=== PATIENT | male | born 1945 | race Hispanic/Latino ===

== ENCOUNTER 2016-11-01 17:30 | Emergency (ER) | payer MEDICARE, OTHER ==
[2016-11-01] MEDS ORDERED: ARTIFICIAL TEARS OPHTH OINT OU PRN (17:46)
[2016-11-01] MEDS ORDERED: VASELINE LIP THERAPY TP PRN (17:46)
--- NOTE | 2016-11-01 17:51 | Emergency Department Report ---
HPI - HPI HPI: This is a 71-year-old male who presents to the emergency department via EMS from home with altered mental status and being nonresponsive. About 40 minutes prior to presentation the patient was stung by one of her multiple bees. The family then hosed him down with cold water in order to try and get the bees away from him. About 15 or 20 minutes after this the patient suddenly went nonresponsive, nonverbal. He is therefore a poor historian. There is no known past medical history. <NATE HOPE Danny - Last Filed: 11/03/16 06:07> <CHELASUKHDEV - Last Filed: 11/07/16 04:56> - General Time Seen by Provider: 11/01/16 17:45 ED Past Medical Hx - Past Medical History Previous Medical History?: No - Surgical History Past Surgical History?: No <NATE HOPE Danny - Last Filed: 11/03/16 06:07> <KULDEEPELIZABETHSUKHDEV - Last Filed: 11/07/16 04:56> - Medications Home Medications: Home Medications Medication Instructions Recorded Confirmed Last Taken Type Acetaminophen [Tylenol] 325 mg PO Q6HR PRN 11/01/16 11/01/16 10/31/16 History ED Review of Systems ROS: Stated complaint: POSS STROKE Other details as noted in HPI Comment: Unobtainable due to pts medical conditions <HERMINIANATE Danny - Last Filed: 11/03/16 06:07> ROS: Stated complaint: POSS STROKE Other details as noted in HPI <SUKHDEV YORK - Last Filed: 11/07/16 04:56> Physical Exam - Physical Exam Physical Exam: GENERAL: The patient is ill-appearing and unresponsive. HENT: Normocephalic. Atraumatic. Patient has moist mucous membranes. EYES: Patient appears to move his eyes slightly but does not appear to be tracking. Pupils equal reactive to light bilaterally. NECK: Supple. Trachea is midline. CHEST/LUNGS: There are shallow snoring respirations. HEART/CARDIOVASCULAR: Regular. There is no tachycardia. There is no gallop rub or murmur. ABDOMEN: Abdomen is soft, nontender. Patient has normal bowel sounds. There is no abdominal distention. SKIN: There is no rash. There is no edema. There is no diaphoresis. NEURO: Patient is awake with his eyes open but is otherwise unresponsive. MUSCULOSKELETAL: There is no tenderness or deformity. There is no limitation range of motion. There is no evidence of acute injury. <NATE HOPE - Last Filed: 11/03/16 06:07> - Physical Exam Vital Signs: Vital Signs 11/01/16 11/01/16 11/01/16 17:30 17:56 18:00 Temperature Pulse Rate 97 H 72 80 Respiratory 12 11 L 9 L Rate Blood Pressure 145/107 123/80 157/96 Blood Pressure [Left] O2 Sat by Pulse 100 96 Oximetry 11/01/16 11/01/16 11/01/16 18:15 18:22 18:26 Temperature 98.0 F Pulse Rate 65 78 Respiratory 18 Rate Blood Pressure 138/77 157/96 Blood Pressure [Left] O2 Sat by Pulse 100 100 Oximetry 11/01/16 11/01/16 11/01/16 18:30 18:43 18:45 Temperature Pulse Rate 73 61 62 Respiratory 12 18 Rate Blood Pressure 146/81 146/81 133/72 Blood Pressure [Left] O2 Sat by Pulse 99 100 99 Oximetry 11/01/16 11/01/16 11/01/16 19:22 19:30 19:45 Temperature 96.8 F L Pulse Rate 64 61 64 Respiratory 20 17 22 Rate Blood Pressure 133/72 156/48 139/66 Blood Pressure 156/48 [Left] O2 Sat by Pulse 100 100 100 Oximetry 11/01/16 11/01/16 11/01/16 20:00 20:02 20:15 Temperature Pulse Rate 61 61 57 L Respiratory 20 18 Rate Blood Pressure 130/56 139/66 117/58 Blood Pressure [Left] O2 Sat by Pulse 100 100 100 Oximetry 11/01/16 11/01/16 11/01/16 20:30 20:45 21:00 Temperature Pulse Rate 56 L 59 L 57 L Respiratory 18 18 18 Rate Blood Pressure 109/58 112/62 117/59 Blood Pressure [Left] O2 Sat by Pulse 100 100 100 Oximetry 11/01/16 21:15 Temperature Pulse Rate 58 L Respiratory 18 Rate Blood Pressure 125/62 Blood Pressure [Left] O2 Sat by Pulse 100 Oximetry <SUKHDEV YORK - Last Filed: 11/07/16 04:56> ED Course - Consultations Consultation #1: Just after the CT of the head without contrast resulted as negative, I spoke with the telemedicine neurologist Dr. Sheth who recommended a CT angiography of the head and neck to further rule out a thrombus as the source of the patient 's altered mental status. The patient's labs show renal insufficiency with a creatinine of 1.8 and a GFR 37. I spoke with Dr. Sheth yet again and he still recommends despite this renal insufficiency to have a CT angiography. It should also be noted that it is after hours for the MRI machine at this facility and attempting to get an MRI or MRA would not be expedient and therefore CT angiography is still the more prudent and efficient imaging test 11/01/16 18:59 <NATE HOPE S - Last Filed: 11/03/16 06:07> Vital Signs 11/01/16 11/01/16 11/01/16 17:30 17:56 18:00 Temperature Pulse Rate 97 H 72 80 Respiratory 12 11 L 9 L Rate Blood Pressure 145/107 123/80 157/96 Blood Pressure [Left] O2 Sat by Pulse 100 96 Oximetry 11/01/16 11/01/16 11/01/16 18:15 18:22 18:26 Temperature 98.0 F Pulse Rate 65 78 Respiratory 18 Rate Blood Pressure 138/77 157/96 Blood Pressure [Left] O2 Sat by Pulse 100 100 Oximetry 11/01/16 11/01/16 11/01/16 18:30 18:43 18:45 Temperature Pulse Rate 73 61 62 Respiratory 12 18 Rate Blood Pressure 146/81 146/81 133/72 Blood Pressure [Left] O2 Sat by Pulse 99 100 99 Oximetry 11/01/16 11/01/16 11/01/16 19:22 19:30 19:45 Temperature 96.8 F L Pulse Rate 64 61 64 Respiratory 20 17 22 Rate Blood Pressure 133/72 156/48 139/66 Blood Pressure 156/48 [Left] O2 Sat by Pulse 100 100 100 Oximetry 11/01/16 11/01/16 11/01/16 20:00 20:02 20:15 Temperature Pulse Rate 61 61 57 L Respiratory 20 18 Rate Blood Pressure 130/56 139/66 117/58 Blood Pressure [Left] O2 Sat by Pulse 100 100 100 Oximetry 11/01/16 11/01/16 11/01/16 20:30 20:45 21:00 Temperature Pulse Rate 56 L 59 L 57 L Respiratory 18 18 18 Rate Blood Pressure 109/58 112/62 117/59 Blood Pressure [Left] O2 Sat by Pulse 100 100 100 Oximetry 11/01/16 21:15 Temperature Pulse Rate 58 L Respiratory 18 Rate Blood Pressure 125/62 Blood Pressure [Left] O2 Sat by Pulse 100 Oximetry <CHELASUKHDEV - Last Filed: 11/07/16 04:56> - Intubation Time Out Performed: Yes Sedative: Etomidate Mg Given: 20 Paralytic: Rocuronium Mg Given: 100 Laryngoscope: fiberoptic video scope Size: 4 ET Tube Size: 7.5 Tube Secured Depth (cm): 25 Tube Secured Location: lips Tube Placement Confirmation: visualized tube passing t, equal breath sounds bilat, confirmation by capnometr Patient Tolerated Procedure: well Intubation Complications: none <NATE OHPE - Last Filed: 11/03/16 06:07> ED Medical Decision Making - Lab Data Result diagrams: 11/01/16 17:50 11/01/16 17:50 - EKG Data -: EKG Interpreted by Me EKG shows normal: sinus rhythm, axis, intervals, QRS complexes, ST-T waves Rate: normal - EKG Data When compared to previous EKG there are: previous EKG unavailable Interpretation: normal EKG - Radiology Data Radiology results: report reviewed, image reviewed interpreted by me: Chest x-ray does not show any acute process. There is no obvious pneumonia, pleural effusions or pneumothorax. Endotracheal tube is in the right mainstem bronchus and needs to be pulled back about 3.[address] of the head without contrast does not show any bleed, shift, mass, ischemic changes or any acute intracranial process. PROCEDURE: CT ANGIO NECK TECHNIQUE: Computerized tomographic angiography of the neck was performed after the IV injection of iodinated nonionic contrast including image processing. The image data was postprocessed using 2-dimensional multiplanar reformatted (MPR) and 3-dimensional (MIP and/or volume rendered) techniques. HISTORY: CVA COMPARISON: No prior studies are available for comparison. Note: Assessment of carotid artery stenosis is based on measurement of the distal internal carotid artery diameter as the denominator for stenosis calculations and the [place] Symptomatic Carotid Endarterectomy Trial (NASCET) stenosis criteria . CPT 3100F FINDINGS: Endotracheal tube is low-lying terminating near the right mainstem bronchus origin. It should be withdrawn approximately 2 cm. Mild hypoventilatory changes are seen in the upper lungs. There is tortuosity of the origin of the right vertebral artery. No right vertebral artery stenosis is seen in the neck. There is absence of enhancement of the left vertebral artery, except distally which may be in a retrograde fashion. Calcified plaque is seen at the origin of the left vertebral artery. Minimal partially calcified plaque is seen in the right carotid bifurcation causing 10 percent stenosis. Similar mild plaque is seen in the left carotid bifurcation causing approximately 10 percent stenosis. 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 Only mild stenoses are seen in the carotid bifurcations. PROCEDURE: CT ANGIO HEAD TECHNIQUE: Computerized tomographic angiography of the head was performed after the IV injection of iodinated nonionic contrast including image processing. The image data was postprocessed using 2-dimensional multiplanar reformatted (MPR) and 3-dimensional (MIP and/or volume rendered) techniques. HISTORY: CVA COMPARISON: Head CT dated November 01, 2016 FINDINGS: Distal vertebral arteries appears symmetric but left vertebral artery is probably filling in a retrograde fashion given findings on CTA neck. There is probable subtotal occlusion of the distal 1.2 cm of the basilar artery. This is likely recent as there is probable hyperdense thrombus on unenhanced CT exam in this region. Both P1 segments enhance normally. Posterior communicating arteries are present. Anterior communicating artery is seen. Minimal calcified plaque in the supraclinoid portions of the distal ICAs causes less than 10 percent stenosis. There is normal enhancement of the dural venous sinuses. No definite parenchymal changes of CVA are seen but correlation with MRI may be useful. IMPRESSION: There is subtotal occlusion of the basilar tip, likely from recent thrombosis. Left vertebral artery is occluded in the neck and could be a source for embolus. - Medical Decision Making 71-year-old male presents to the emergency department unresponsive after allegedly being stung by yellow jackets and then hosed down by [place]. The patient was awake with his eyes open but otherwise was not responsive and had some type of shallow snoring respirations. There was concern for airway compromise patient was intubated. Stroke scale is difficult to assess secondary to the level of unresponsiveness. A code stroke was called and CT of the head without contrast did not show any infarct or bleed. Labs are mostly unremarkable other than lactic acidosis and did not showing any etiology of the symptoms. I spoken to telemedicine neurology who did not recommend TPA administration immediately but did recommend CT angiography of the head and neck. The results were not yet back on the CT angiography but when I left the hospital the plan was for the patient to be admitted to [facility] unless there was some type of thrombus seen, in which case the patient would be transferred to a higher institution with neurosurgery. CT angiography essentially showed a basilar and left vertebral artery occlusion and my colleague help facilitate transfer. - Differential Diagnosis CVA, TIA, anaphylaxis <NATE HOPE - Last Filed: 11/03/16 06:07> - Lab Data Result diagrams: 11/01/16 17:50 11/01/16 17:50 <CHELASUKHDEV - Last Filed: 11/07/16 04:56> Critical Care Time: Yes Critical care time in (mins) excluding proc time.: 45 Critical care attestation.: If time is entered above; I have spent that time in minutes in the direct care of this critically ill patient, excluding procedure time. Critical care time spent on this patient and doing his initial evaluation, multiple re-evaluations, multiple discussions with the patient's daughter and , ordering and interpretation of labs, ordering and interpretation of imaging and disposition planning. <NATE HOPE S - Last Filed: 11/03/16 06:07> Critical care attestation.: If time is entered above; I have spent that time in minutes in the direct care of this critically ill patient, excluding procedure time. <CHELASUKHDEV - Last Filed: 11/07/16 04:56> ED Disposition Is pt being admited?: No <NATE HOPE - Last Filed: 11/03/16 06:07> Is pt being admited?: No <CHELASUKHDEV - Last Filed: 11/07/16 04:56> Clinical Impression: CVA (cerebral vascular accident) Qualifiers: CVA mechanism: occlusion Precerebral and cerebral artery: vertebral artery Laterality of affected vessel: unspecified Qualified Code(s): I63.219 - Cerebral infarction due to unspecified occlusion or stenosis of unspecified vertebral arteries Dis[facility]: DC[facility] IP Condition: Critical Referrals: PRIMARY CARE,MD [Primary Care Provider] - 3-5 Days
[2016-11-01] MEDS ORDERED: fentaNYL DRIP Premix 2,000 MCG/100 ML BAG IV SCH (18:00)
[2016-11-01] MEDS ORDERED: MIDAZOLAM 100 MG in NACL 0.9% 80 ML IV SCH (18:00)
[2016-11-01 18:03] LABS: Hematocrit 44.2 % (35.5-45.6); Hemoglobin 14.6 gm/dl (11.8-15.2); Mean Corpuscular HGB Conc 33 % (32-34); Mean Corpuscular Hemoglobin 31 pg (28-32); Mean Corpuscular Volume 94 fl (84-94); Platelet Count 301 K/mm3 (140-440); Red Blood Count 4.69 M/mm3 (3.65-5.03); Red Cell Distribution Width 13.3 % (13.2-15.2); White Blood Count 12.4 K/mm3 (4.5-11.0)
--- NOTE | 2016-11-01 18:06 | Cat Scan Report ---
FINAL REPORT PROCEDURE: CT HEAD/BRAIN WO CON TECHNIQUE: Computerized tomography of the head was performed without contrast material. HISTORY: suspected stroke COMPARISON: No prior studies are available for comparison. FINDINGS: Visualized portions of the paranasal sinuses and mastoid air cells are clear. No calvarial fracture is seen. Cerebral ventricles are normal in size. There may be minimal chronic small vessel ischemic changes but no evidence of an acute CVA is seen. No acute intracranial hemorrhage or mass effect is seen. IMPRESSION: Possible mild chronic small vessel ischemic changes are seen without evidence of acute abnormality.
[2016-11-01 18:12] LABS: INR 1.03 (0.87-1.13); Partial Thromboplastin Time 24.1 Sec. (24.2-36.6)
[2016-11-01 18:28] LABS: Creatine Kinase MB 5.2 ng/mL (0.0-4.0)
[2016-11-01 18:29] LABS: Alanine Aminotransferase 16 units/L (7-56); Albumin/Globulin Ratio 1.2 %; Alkaline Phosphatase 59 units/L (35-129); Anion Gap 24 mmol/L; BUN/Creatinine Ratio 17.22; Blood Urea Nitrogen 31 mg/dL (9-20); Calcium 8.6 mg/dL (8.4-10.2); Carbon Dioxide 17 mmol/L (22-30); Chloride 102.6 mmol/L (98-107); Creatine Kinase 215 units/L (55-170); Glucose 136 mg/dL (75-100); Potassium 3.9 mmol/L (3.6-5.0); Sodium 140 mmol/L (137-145); Total Protein 7.4 g/dL (6.3-8.2)
[2016-11-01 18:32] LABS: Urine Drugs of Abuse Note Disclamer
--- NOTE | 2016-11-01 18:37 | History and Physical Report ---
History of Present Illness Chief complaint: Unresponsive History of present illness: 71 YO Male with NO PMH presents to ED for evaluation. Pt was in his usual state of health and was stung by multiple bees. Pt was hosed down with cold water by family members and thereafter became unresponsive. EMS notified, and upon arrival the patient was found is respiratory distress and transported to [facility]. Pt seen and evaluated in ED and found to be in severe distress, and was intubated and placed on vent support. Pt unable to provide history. Pt family at bedside and provides history. Past History Past Medical History: No medical history, other (reviewed) Past Surgical History: No surgical history, Other (reviewed) Social history: , lives with family. denies: smoking, prescription drug abuse, IV drug use Family history: hypertension Medications and Allergies Allergies Allergy/AdvReac Type Severity Reaction Status Date / Time No Known Allergies Allergy Unverified 11/01/16 17:48 Home Medications Medication Instructions Recorded Confirmed Last Taken Type Acetaminophen [Tylenol] 325 mg PO Q6HR PRN 11/01/16 11/01/16 10/31/16 History Active Meds: Active Medications Hydrophilic Ointment (Vaseline Lip Therapy) 1 applic TP Q2HR PRN PRN Reason: Dry Lips Fentanyl Citrate (Fentanyl Drip Premix) 2,000 mcg in 100 mls @ 4.536 mls/hr IV TITR DIANA; 1 MCG/KG/HR PRN Reason: Protocol Midazolam HCl 100 mg/ Sodium (Chloride) 100 mls @ 2 mls/hr IV TITR DIANA; 2 MG/HR PRN Reason: Protocol Multi-Ingred Cream/Lotion/Oil/Oint (Artificial Tears Ophth Oint) 1 applic OU Q4HR PRN PRN Reason: Dry Eye(s) Review of Systems ROS unobtainable: due to mental status Exam - Constitutional Vitals: Temp Pulse Resp BP Pulse Ox 98.0 F 78 9 L 157/96 100 11/01/16 18:22 11/01/16 18:26 11/01/16 18:00 11/01/16 18:26 11/01/16 18:26 General appearance: Present: severe distress - EENT ENT: poor dentition - Neck Neck: Present: supple, normal ROM - Respiratory Respiratory effort: labored, accessory muscle use Respiratory: bilateral: diminished - Cardiovascular Heart Sounds: Present: S1 & S2. Absent: rub, click - Extremities Extremities: pulses symmetrical, No edema Extremity abnormal: edema Peripheral Pulses: within normal limits - Abdominal General gastrointestinal: Present: soft, non-tender, non-distended, normal bowel sounds Male genitourinary: Present: normal - Integumentary Integumentary: Present: clear, dry, decreased turgor - Musculoskeletal Musculoskeletal: generalized weakness - Psychiatric Psychiatric: no intact judgment & insight, no memory intact - Neurologic Neurologic: no gait normal Results - Labs CBC & Chem 7: 11/01/16 17:50 11/01/16 17:50 Labs: Abnormal lab results 11/01/16 11/01/16 11/01/16 Range/Units 17:50 17:50 17:50 WBC 12.4 H (4.5-11.0) K/mm3 APTT 24.1 L (24.2-36.6) Sec. Carbon Dioxide 17 L (22-30) mmol/L BUN 31 H (9-20) mg/dL Creatinine 1.8 H (0.8-1.5) mg/dL Glucose 136 H (75-100) mg/dL Total Creatine Kinase 215 H (55-170) units/L CK-MB (CK-2) 5.2 H (0.0-4.0) ng/mL Assessment and Plan - Patient Problems (1) Acute respiratory failure Status: Acute Qualifiers: Respiratory failure complication: hypoxia Qualified Code(s): J96.01 - Acute respiratory failure with hypoxia Plan to address problem: Pulmonary consulted, wean vent as tolerated, sbt in am, supportive card The high probability of a clinically significant, sudden or life threatening deterioration of the [pulmonary, cardiac, renal] system(s) required my full and direct attention, intervention and personal management. The aggregate critical care time was [65] minutes. This time is in addition to time spent performing reported procedures but includes the following: [x] Data Review and interpretation [x] Patient assessment and monitoring of vital signs [x] Documentation [x] Medication orders and management (2) Metabolic acidosis Status: Acute Plan to address problem: supportive care, IVF resuscitation, repeaat bmp (3) ARF (acute renal failure) Status: Acute Qualifiers: Acute renal failure type: A Plan to address problem: IVF, supportive care, monitor uop q shift, (4) Anaphylactic reaction Status: Acute Qualifiers: Encounter type: E Plan to address problem: trial steroid therapy, supportive care. monitor bp, (5) DVT prophylaxis Status: Acute
[2016-11-01 18:52] LABS: Bilirubin,Urine NEG (Negative); Blood,Urine NEG (Negative); Ketones,Urine NEG (Negative); Leukocyte Esterase,Urine NEG (Negative); Mucus,Urine FEW /HPF; Nitrite,Urine NEG (Negative); Protein,Urine <15 mg/dL mg/dL (Negative); Urobilinogen,Urine < 2.0 mg/dL (<2.0); WBC,Urine < 1.0 /HPF (0.0-6.0)
[2016-11-01] MEDS ORDERED: NACL 0.45% 1,000 ML IV SCH (19:00)
[2016-11-01 19:04] LABS: ISTAT Base Excess -1; ISTAT PCO2 35.4 (35-45); ISTAT PO2 70 (80-105); ISTAT SO2 94; ISTAT TCO2 24
[2016-11-01 19:12] LABS: Basophils % (Manual) 0 % (0.0-1.8); Blastocytes % (Manual) 0 %
[2016-11-01 19:13] LABS: RBC Morphology Normal
[2016-11-01 19:14] LABS: Diff Status Complete; Large Platelets 1+; Platelet Estimate Consistent w Auto
[2016-11-01] MEDS ORDERED: fentaNYL DRIP Premix 2,000 MCG/100 ML BAG IV ONE (20:00)
[2016-11-01] MEDS ORDERED: SUBLIMAZE ONE (20:14)
--- NOTE | 2016-11-01 20:14 | Cat Scan Report ---
FINAL REPORT PROCEDURE: CT ANGIO NECK TECHNIQUE: Computerized tomographic angiography of the neck was performed after the IV injection of iodinated nonionic contrast including image processing. The image data was postprocessed using 2-dimensional multiplanar reformatted (MPR) and 3-dimensional (MIP and/or volume rendered) techniques. HISTORY: CVA COMPARISON: No prior studies are available for comparison. Note: Assessment of carotid artery stenosis is based on measurement of the distal internal carotid artery diameter as the denominator for stenosis calculations and the [place] Symptomatic Carotid Endarterectomy Trial (NASCET) stenosis criteria . CPT 3100F FINDINGS: Endotracheal tube is low-lying terminating near the right mainstem bronchus origin. It should be withdrawn approximately 2 cm. Mild hypoventilatory changes are seen in the upper lungs. There is tortuosity of the origin of the right vertebral artery. No right vertebral artery stenosis is seen in the neck. There is absence of enhancement of the left vertebral artery, except distally which may be in a retrograde fashion. Calcified plaque is seen at the origin of the left vertebral artery. Minimal partially calcified plaque is seen in the right carotid bifurcation causing 10 percent stenosis. Similar mild plaque is seen in the left carotid bifurcation causing approximately 10 percent stenosis. 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 Only mild stenoses are seen in the carotid bifurcations. Endotracheal tube is low-lying terminating near the right mainstem bronchus origin. It should be withdrawn approximately 2 cm.
--- NOTE | 2016-11-01 20:39 | Cat Scan Report ---
FINAL REPORT PROCEDURE: CT ANGIO HEAD TECHNIQUE: Computerized tomographic angiography of the head was performed after the IV injection of iodinated nonionic contrast including image processing. The image data was postprocessed using 2-dimensional multiplanar reformatted (MPR) and 3-dimensional (MIP and/or volume rendered) techniques. HISTORY: CVA COMPARISON: Head CT dated November 01, 2016 FINDINGS: Distal vertebral arteries appears symmetric but left vertebral artery is probably filling in a retrograde fashion given findings on CTA neck. There is probable subtotal occlusion of the distal 1.2 cm of the basilar artery. This is likely recent as there is probable hyperdense thrombus on unenhanced CT exam in this region. Both P1 segments enhance normally. Posterior communicating arteries are present. Anterior communicating artery is seen. Minimal calcified plaque in the supraclinoid portions of the distal ICAs causes less than 10 percent stenosis. There is normal enhancement of the dural venous sinuses. No definite parenchymal changes of CVA are seen but correlation with MRI may be useful. IMPRESSION: There is subtotal occlusion of the basilar tip, likely from recent thrombosis. Left vertebral artery is occluded in the neck and could be a source for embolus. Results from this exam and CTA neck exam were discussed with Dr. Cohen at 8:32 p.m. Eastern time on November 01, 2016.
[2016-11-01] MEDS ORDERED: ACTIVASE ONE (20:46)
[2016-11-01] MEDS ORDERED: ACTIVASE IV ONE ×2 (20:48)
[2016-11-01] MEDS ORDERED: NACL 0.9% IV ONE (20:48)
[2016-11-01] MEDS ORDERED: NACL 0.9% 250ML 250 ML ONE (20:52)
--- NOTE | 2016-11-01 21:33 | Event Note ---
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 I went back to discuss these findings with the patient's family, and the consult and stroke neurologist, Dr. Leandro Sheth. TPA strongly recommended, and the risks, benefits, alternatives were discussed with family who verbalized understanding. The specific risk of , disability, intracranial hemorrhage was discussed with the patient's family, and they gave verbal consent for TPA administration. Of note, the endotracheal tube was initially noted to be in the right mainstem bronchus, respiratory therapy has retracted this. I have also discussed the case with endovascular stroke neurology at [facility], Dr. Blanton, who personally reviewed the patient's CT angiogram findings, and accepted the patient as an emergency transfer for endovascular stroke rescue. Patient's family is informed. TPA was administered within the window. Vital Signs 11/01/16 11/01/16 11/01/16 17:30 17:56 18:00 Temperature Pulse Rate 97 H 72 80 Respiratory 12 11 L 9 L Rate Blood Pressure 145/107 123/80 157/96 Blood Pressure [Left] O2 Sat by Pulse 100 96 Oximetry 11/01/16 11/01/16 11/01/16 18:15 18:22 18:26 Temperature 98.0 F Pulse Rate 65 78 Respiratory 18 Rate Blood Pressure 138/77 157/96 Blood Pressure [Left] O2 Sat by Pulse 100 100 Oximetry 11/01/16 11/01/16 11/01/16 18:30 18:43 18:45 Temperature Pulse Rate 73 61 62 Respiratory 12 18 Rate Blood Pressure 146/81 146/81 133/72 Blood Pressure [Left] O2 Sat by Pulse 99 100 99 Oximetry 11/01/16 11/01/16 11/01/16 19:22 19:30 19:45 Temperature 96.8 F L Pulse Rate 64 61 64 Respiratory 20 17 22 Rate Blood Pressure 133/72 156/48 139/66 Blood Pressure 156/48 [Left] O2 Sat by Pulse 100 100 100 Oximetry 11/01/16 11/01/16 11/01/16 20:00 20:02 20:15 Temperature Pulse Rate 61 61 57 L Respiratory 20 18 Rate Blood Pressure 130/56 139/66 117/58 Blood Pressure [Left] O2 Sat by Pulse 100 100 100 Oximetry 08/18/17 08/18/17 08/18/17 20:30 20:45 21:00 Temperature Pulse Rate 56 L 59 L 57 L Respiratory 18 18 18 Rate Blood Pressure 109/58 112/62 117/59 Blood Pressure [Left] O2 Sat by Pulse 100 100 100 Oximetry 11/01/16 21:15 Temperature Pulse Rate 58 L Respiratory 18 Rate Blood Pressure 125/62 Blood Pressure [Left] O2 Sat by Pulse 100 Oximetry Lab Results 11/01/16 11/01/16 11/01/16 Range/Units 17:46 17:50 17:50 WBC 12.4 H (4.5-11.0) K/mm3 RBC 4.69 (3.65-5.03) M/mm3 Hgb 14.6 (11.8-15.2) gm/dl Hct 44.2 (35.5-45.6) % MCV 94 (84-94) fl MCH 31 (28-32) pg MCHC 33 (32-34) % RDW 13.3 (13.2-15.2) % Plt Count 301 (140-440) K/mm3 Lymph # [place] Add Manual Diff Complete Total Counted 100 Seg Neuts % (Manual) 58.0 (40.0-70.0) % Band Neutrophils % 0 % Lymphocytes % (Manual) 31.0 (13.4-35.0) % Reactive Lymphs % (Man) 0 % Monocytes % (Manual) 10.0 H (0.0-7.3) % Eosinophils % (Manual) 1.0 (0.0-4.3) % Basophils % (Manual) 0 (0.0-1.8) % Metamyelocytes % 0 % Myelocytes % 0 % Promyelocytes % 0 % Blast Cells % 0 % Nucleated RBC % Not Reportable Seg Neutrophils # Man 7.2 (1.8-7.7) K/mm3 Band Neutrophils # 0.0 K/mm3 Lymphocytes # (Manual) 3.8 (1.2-5.4) K/mm3 Abs React Lymphs (Man) 0.0 K/mm3 Monocytes # (Manual) 1.2 H (0.0-0.8) K/mm3 Eosinophils # (Manual) 0.1 (0.0-0.4) K/mm3 Basophils # (Manual) 0.0 (0.0-0.1) K/mm3 Metamyelocytes # 0.0 K/mm3 Myelocytes # 0.0 K/mm3 Promyelocytes # 0.0 K/mm3 Blast Cells # 0.0 K/mm3 WBC Morphology Not Reportable Hypersegmented Neuts Not Reportable Hyposegmented Neuts Not Reportable Hypogranular Neuts Not Reportable Smudge Cells Not Reportable Toxic Granulation Not Reportable Toxic Vacuolation Not Reportable Dohle Bodies Not Reportable Pelger-Huet Anomaly Not Reportable Hayden Rods Not Reportable Platelet Estimate Consistent w auto Clumped Platelets Not Reportable Plt Clumps, EDTA Not Reportable Large Platelets 1+ Giant Platelets Not Reportable Platelet Satelliting Not Reportable Plt Morphology Comment Not Reportable RBC Morphology Normal Dimorphic RBCs Not Reportable Polychromasia Not Reportable Hypochromasia Not Reportable Poikilocytosis Not Reportable Anisocytosis Not Reportable Microcytosis Not Reportable Macrocytosis Not Reportable Spherocytes Not Reportable Pappenheimer Bodies Not Reportable Sickle Cells Not Reportable Target Cells Not Reportable Tear Drop Cells Not Reportable Ovalocytes Not Reportable Helmet Cells Not Reportable [place]uman Bodies Not Reportable [place] Not Reportable [place] Cells Not Reportable Bite Cells Not Reportable Crenated Cell Not Reportable Elliptocytes Not Reportable Acanthocytes (Spur) Not Reportable Rouleaux Not Reportable Hemoglobin C Crystals Not Reportable Schistocytes Not Reportable Malaria parasites Not Reportable Navi Bodies Not Reportable Hem Pathologist Commnt No PT 14.0 (12.2-14.9) Sec. INR 1.03 (0.87-1.13) APTT 24.1 L (24.2-36.6) Sec. Thrombin Time 16.8 (15.1-19.6) Sec. POC ABG pH (7.35-7.45) POC ABG pCO2 (35-45) POC ABG pO2 (80-105) POC ABG HCO3 POC ABG Total CO2 POC ABG O2 Sat POC ABG Base Excess VBG pH (7.320-7.420) FiO2 % Sodium (137-145) mmol/L Potassium (3.6-5.0) mmol/L Chloride (98-107) mmol/L Carbon Dioxide (22-30) mmol/L Anion Gap mmol/L BUN (9-20) mg/dL Creatinine (0.8-1.5) mg/dL Estimated GFR ml/min BUN/Creatinine Ratio % Glucose (75-100) mg/dL Lactic Acid (0.7-2.0) mmol/L Calcium (8.4-10.2) mg/dL Total Bilirubin (0.1-1.2) mg/dL AST (5-40) units/L ALT (7-56) units/L Alkaline Phosphatase (35-129) units/L Total Creatine Kinase (55-170) units/L CK-MB (CK-2) (0.0-4.0) ng/mL CK-MB (CK-2) Rel Index (0-4) Troponin T (0.00-0.029) ng/mL Total Protein (6.3-8.2) g/dL Albumin (3.9-5) g/dL Albumin/Globulin Ratio % Urine Color (Yellow) Urine Turbidity (Clear) Urine pH (5.0-7.0) Ur Specific [place] (1.003-1.030) Urine Protein (Negative) mg/dL Urine Glucose (UA) (Negative) mg/dL Urine Ketones (Negative) mg/dL Urine Blood (Negative) Urine Nitrite (Negative) Urine Bilirubin (Negative) Urine Urobilinogen (<2.0) mg/dL Ur Leukocyte Esterase (Negative) Urine WBC (Auto) (0.0-6.0) /HPF Urine RBC (Auto) (0.0-6.0) /HPF U Epithel Cells (Auto) (0-13.0) /HPF Hyaline Casts /LPF Urine Mucus /HPF Urine Opiates Screen Urine Methadone Screen Ur Barbiturates Screen Ur Phencyclidine Scrn Ur Amphetamines Screen U Benzodiazepines Scrn Urine Cocaine Screen U Marijuana (THC) Screen Drugs of Abuse Note Plasma/Serum Alcohol < 0.01 (0-0.07) gm% Blood Type Antibody Screen 11/01/16 11/01/16 11/01/16 Range/Units 17:50 17:50 18:23 WBC (4.5-11.0) K/mm3 RBC (3.65-5.03) M/mm3 Hgb (11.8-15.2) gm/dl Hct (35.5-45.6) % MCV (84-94) fl MCH (28-32) pg MCHC (32-34) % RDW (13.2-15.2) % Plt Count (140-440) K/mm3 Lymph # Add Manual Diff Total Counted Seg Neuts % (Manual) (40.0-70.0) % Band Neutrophils % % Lymphocytes % (Manual) (13.4-35.0) % Reactive Lymphs % (Man) % Monocytes % (Manual) (0.0-7.3) % Eosinophils % (Manual) (0.0-4.3) % Basophils % (Manual) (0.0-1.8) % Metamyelocytes % % Myelocytes % % Promyelocytes % % Blast Cells % % Nucleated RBC % Seg Neutrophils # Man (1.8-7.7) K/mm3 Band Neutrophils # K/mm3 Lymphocytes # (Manual) (1.2-5.4) K/mm3 Abs React Lymphs (Man) K/mm3 Monocytes # (Manual) (0.0-0.8) K/mm3 Eosinophils # (Manual) (0.0-0.4) K/mm3 Basophils # (Manual) (0.0-0.1) K/mm3 Metamyelocytes # K/mm3 Myelocytes # K/mm3 Promyelocytes # K/mm3 Blast Cells # K/mm3 WBC Morphology Hypersegmented Neuts Hyposegmented Neuts Hypogranular Neuts Smudge Cells Toxic Granulation Toxic Vacuolation Dohle Bodies Pelger-Huet Anomaly Hayden Rods Platelet Estimate Clumped Platelets Plt Clumps, EDTA Large Platelets Giant Platelets Platelet Satelliting Plt Morphology Comment RBC Morphology Dimorphic RBCs Polychromasia Hypochromasia Poikilocytosis Anisocytosis Microcytosis Macrocytosis Spherocytes Pappenheimer Bodies Sickle Cells Target Cells Tear Drop Cells Ovalocytes Helmet Cells [place]-Truman Bodies [place] Cells Bite Cells Crenated Cell Elliptocytes Acanthocytes (Spur) Rouleaux Hemoglobin C Crystals Schistocytes Malaria parasites Navi Bodies Hem Pathologist Commnt PT (12.2-14.9) Sec. INR (0.87-1.13) APTT (24.2-36.6) Sec. Thrombin Time (15.1-19.6) Sec. POC ABG pH (7.35-7.45) POC ABG pCO2 (35-45) POC ABG pO2 (80-105) POC ABG HCO3 POC ABG Total CO2 POC ABG O2 Sat POC ABG Base Excess VBG pH (7.320-7.420) FiO2 % Sodium 140 (137-145) mmol/L Potassium 3.9 (3.6-5.0) mmol/L Chloride 102.6 (98-107) mmol/L Carbon Dioxide 17 L (22-30) mmol/L Anion Gap 24 mmol/L BUN 31 H (9-20) mg/dL Creatinine 1.8 H (0.8-1.5) mg/dL Estimated GFR 37 ml/min BUN/Creatinine Ratio 17.22 % Glucose 136 H (75-100) mg/dL Lactic Acid 3.80 H* (0.7-2.0) mmol/L Calcium 8.6 (8.4-10.2) mg/dL Total Bilirubin 0.30 (0.1-1.2) mg/dL AST 22 (5-40) units/L ALT 16 (7-56) units/L Alkaline Phosphatase 59 (35-129) units/L Total Creatine Kinase 215 H (55-170) units/L CK-MB (CK-2) 5.2 H (0.0-4.0) ng/mL CK-MB (CK-2) Rel Index 2.4 (0-4) Troponin T < 0.010 (0.00-0.029) ng/mL Total Protein 7.4 (6.3-8.2) g/dL Albumin 4.0 (3.9-5) g/dL Albumin/Globulin Ratio 1.2 % Urine Color Yellow (Yellow) Urine Turbidity Clear (Clear) Urine pH 5.0 (5.0-7.0) Ur Specific [place] 1.015 (1.003-1.030) Urine Protein <15 mg/dl (Negative) mg/dL Urine Glucose (UA) Neg (Negative) mg/dL Urine Ketones Neg (Negative) mg/dL Urine Blood Neg (Negative) Urine Nitrite Neg (Negative) Urine Bilirubin Neg (Negative) Urine Urobilinogen < 2.0 (<2.0) mg/dL Ur Leukocyte Esterase Neg (Negative) Urine WBC (Auto) < 1.0 (0.0-6.0) /HPF Urine RBC (Auto) 3.0 (0.0-6.0) /HPF U Epithel Cells (Auto) < 1.0 (0-13.0) /HPF Hyaline Casts 1 /LPF Urine Mucus Few /HPF Urine Opiates Screen Urine Methadone Screen Ur Barbiturates Screen Ur Phencyclidine Scrn Ur Amphetamines Screen U Benzodiazepines Scrn Urine Cocaine Screen U Marijuana (THC) Screen Drugs of Abuse Note Plasma/Serum Alcohol (0-0.07) gm% Blood Type Antibody Screen 11/01/16 11/01/16 11/01/16 Range/Units 18:23 18:26 18:26 WBC (4.5-11.0) K/mm3 RBC (3.65-5.03) M/mm3 Hgb (11.8-15.2) gm/dl Hct (35.5-45.6) % MCV (84-94) fl MCH (28-32) pg MCHC (32-34) % RDW (13.2-15.2) % Plt Count (140-440) K/mm3 Lymph # Add Manual Diff Total Counted Seg Neuts % (Manual) (40.0-70.0) % Band Neutrophils % % Lymphocytes % (Manual) (13.4-35.0) % Reactive Lymphs % (Man) % Monocytes % (Manual) (0.0-7.3) % Eosinophils % (Manual) (0.0-4.3) % Basophils % (Manual) (0.0-1.8) % Metamyelocytes % % Myelocytes % % Promyelocytes % % Blast Cells % % Nucleated RBC % Seg Neutrophils # Man (1.8-7.7) K/mm3 Band Neutrophils # K/mm3 Lymphocytes # (Manual) (1.2-5.4) K/mm3 Abs React Lymphs (Man) K/mm3 Monocytes # (Manual) (0.0-0.8) K/mm3 Eosinophils # (Manual) (0.0-0.4) K/mm3 Basophils # (Manual) (0.0-0.1) K/mm3 Metamyelocytes # K/mm3 Myelocytes # K/mm3 Promyelocytes # K/mm3 Blast Cells # K/mm3 WBC Morphology Hypersegmented Neuts Hyposegmented Neuts Hypogranular Neuts Smudge Cells Toxic Granulation Toxic Vacuolation Dohle Bodies Pelger-Huet Anomaly Hayden Rods Platelet Estimate Clumped Platelets Plt Clumps, EDTA Large Platelets Giant Platelets Platelet Satelliting Plt Morphology Comment RBC Morphology Dimorphic RBCs Polychromasia Hypochromasia Poikilocytosis Anisocytosis Microcytosis Macrocytosis Spherocytes Pappenheimer Bodies Sickle Cells Target Cells Tear Drop Cells Ovalocytes Helmet Cells West[place]-Truman Bodies [place] Cells Bite Cells Crenated Cell Elliptocytes Acanthocytes (Spur) Rouleaux Hemoglobin C Crystals Schistocytes Malaria parasites Navi Bodies Hem Pathologist Commnt PT (12.2-14.9) Sec. INR (0.87-1.13) APTT (24.2-36.6) Sec. Thrombin Time (15.1-19.6) Sec. POC ABG pH (7.35-7.45) POC ABG pCO2 (35-45) POC ABG pO2 (80-105) POC ABG HCO3 POC ABG Total CO2 POC ABG O2 Sat POC ABG Base Excess VBG pH 7.364 (7.320-7.420) FiO2 % Sodium (137-145) mmol/L Potassium (3.6-5.0) mmol/L Chloride (98-107) mmol/L Carbon Dioxide (22-30) mmol/L Anion Gap mmol/L BUN (9-20) mg/dL Creatinine (0.8-1.5) mg/dL Estimated GFR ml/min BUN/Creatinine Ratio % Glucose (75-100) mg/dL Lactic Acid (0.7-2.0) mmol/L Calcium (8.4-10.2) mg/dL Total Bilirubin (0.1-1.2) mg/dL AST (5-40) units/L ALT (7-56) units/L Alkaline Phosphatase (35-129) units/L Total Creatine Kinase (55-170) units/L CK-MB (CK-2) (0.0-4.0) ng/mL CK-MB (CK-2) Rel Index (0-4) Troponin T (0.00-0.029) ng/mL Total Protein (6.3-8.2) g/dL Albumin (3.9-5) g/dL Albumin/Globulin Ratio % Urine Color (Yellow) Urine Turbidity (Clear) Urine pH (5.0-7.0) Ur Specific [place] (1.003-1.030) Urine Protein (Negative) mg/dL Urine Glucose (UA) (Negative) mg/dL Urine Ketones (Negative) mg/dL Urine Blood (Negative) Urine Nitrite (Negative) Urine Bilirubin (Negative) Urine Urobilinogen (<2.0) mg/dL Ur Leukocyte Esterase (Negative) Urine WBC (Auto) (0.0-6.0) /HPF Urine RBC (Auto) (0.0-6.0) /HPF U Epithel Cells (Auto) (0-13.0) /HPF Hyaline Casts /LPF Urine Mucus /HPF Urine Opiates Screen Presumptive negative Urine Methadone Screen Presumptive negative Ur Barbiturates Screen Presumptive negative Ur Phencyclidine Scrn Presumptive negative Ur Amphetamines Screen Presumptive negative U Benzodiazepines Scrn Presumptive negative Urine Cocaine Screen Presumptive negative U Marijuana (THC) Screen Presumptive negative Drugs of Abuse Note Disclamer Plasma/Serum Alcohol (0-0.07) gm% Blood Type A POSITIVE Antibody Screen Negative 11/01/16 11/01/16 11/01/16 Range/Units 18:50 20:23 20:23 WBC (4.5-11.0) K/mm3 RBC (3.65-5.03) M/mm3 Hgb (11.8-15.2) gm/dl Hct (35.5-45.6) % MCV (84-94) fl MCH (28-32) pg MCHC (32-34) % RDW (13.2-15.2) % Plt Count (140-440) K/mm3 Lymph # Add Manual Diff Total Counted Seg Neuts % (Manual) (40.0-70.0) % Band Neutrophils % % Lymphocytes % (Manual) (13.4-35.0) % Reactive Lymphs % (Man) % Monocytes % (Manual) (0.0-7.3) % Eosinophils % (Manual) (0.0-4.3) % Basophils % (Manual) (0.0-1.8) % Metamyelocytes % % Myelocytes % % Promyelocytes % % Blast Cells % % Nucleated RBC % Seg Neutrophils # Man (1.8-7.7) K/mm3 Band Neutrophils # K/mm3 Lymphocytes # (Manual) (1.2-5.4) K/mm3 Abs React Lymphs (Man) K/mm3 Monocytes # (Manual) (0.0-0.8) K/mm3 Eosinophils # (Manual) (0.0-0.4) K/mm3 Basophils # (Manual) (0.0-0.1) K/mm3 Metamyelocytes # K/mm3 Myelocytes # K/mm3 Promyelocytes # K/mm3 Blast Cells # K/mm3 WBC Morphology Hypersegmented Neuts Hyposegmented Neuts Hypogranular Neuts Smudge Cells Toxic Granulation Toxic Vacuolation Dohle Bodies Pelger-Huet Anomaly Hayden Rods Platelet Estimate Clumped Platelets Plt Clumps, EDTA Large Platelets Giant Platelets Platelet Satelliting Plt Morphology Comment RBC Morphology Dimorphic RBCs Polychromasia Hypochromasia Poikilocytosis Anisocytosis Microcytosis Macrocytosis Spherocytes Pappenheimer Bodies Sickle Cells Target Cells Tear Drop Cells Ovalocytes Helmet Cells [place]-Truman Bodies [place] Cells Bite Cells Crenated Cell Elliptocytes Acanthocytes (Spur) Rouleaux Hemoglobin C Crystals Schistocytes Malaria parasites Navi Bodies Hem Pathologist Commnt PT (12.2-14.9) Sec. INR (0.87-1.13) APTT (24.2-36.6) Sec. Thrombin Time (15.1-19.6) Sec. POC ABG pH 7.420 (7.35-7.45) POC ABG pCO2 35.4 (35-45) POC ABG pO2 70 L (80-105) POC ABG HCO3 23.0 POC ABG Total CO2 24 POC ABG O2 Sat 94 POC ABG Base Excess -1 VBG pH (7.320-7.420) FiO2 70 % Sodium (137-145) mmol/L Potassium (3.6-5.0) mmol/L Chloride (98-107) mmol/L Carbon Dioxide (22-30) mmol/L Anion Gap mmol/L BUN (9-20) mg/dL Creatinine (0.8-1.5) mg/dL Estimated GFR ml/min BUN/Creatinine Ratio % Glucose (75-100) mg/dL Lactic Acid 2.30 H* (0.7-2.0) mmol/L Calcium (8.4-10.2) mg/dL Total Bilirubin (0.1-1.2) mg/dL AST (5-40) units/L ALT (7-56) units/L Alkaline Phosphatase (35-129) units/L Total Creatine Kinase (55-170) units/L CK-MB (CK-2) (0.0-4.0) ng/mL CK-MB (CK-2) Rel Index (0-4) Troponin T < 0.010 (0.00-0.029) ng/mL Total Protein (6.3-8.2) g/dL Albumin (3.9-5) g/dL Albumin/Globulin Ratio % Urine Color (Yellow) Urine Turbidity (Clear) Urine pH (5.0-7.0) Ur Specific [place] (1.003-1.030) Urine Protein (Negative) mg/dL Urine Glucose (UA) (Negative) mg/dL Urine Ketones (Negative) mg/dL Urine Blood (Negative) Urine Nitrite (Negative) Urine Bilirubin (Negative) Urine Urobilinogen (<2.0) mg/dL Ur Leukocyte Esterase (Negative) Urine WBC (Auto) (0.0-6.0) /HPF Urine RBC (Auto) (0.0-6.0) /HPF U Epithel Cells (Auto) (0-13.0) /HPF Hyaline Casts /LPF Urine Mucus /HPF Urine Opiates Screen Urine Methadone Screen Ur Barbiturates Screen Ur Phencyclidine Scrn Ur Amphetamines Screen U Benzodiazepines Scrn Urine Cocaine Screen U Marijuana (THC) Screen Drugs of Abuse Note Plasma/Serum Alcohol (0-0.07) gm% Blood Type Antibody Screen
[2016-11-01 22:32] VITALS: BP 131/68
[2016-11-01] MEDS ORDERED: AMIDATE IV ONE (22:36)
[2016-11-01] MEDS ORDERED: ZEMURON IV ONE (22:36)
--- NOTE | 2016-11-02 09:23 | XRay Report ---
AP CHEST :11/01/16 18:34 CLINICAL: Post intubation. COMPARISON:None. FINDINGS: The endotracheal tube is in the right mainstem bronchus. Normal heart and pulmonary vessels. The right lung is normally expanded and clear area left basal opacification with silhouetting of the left hemidiaphragm and opacification of the left costophrenic angle. No pneumothorax. IMPRESSION: Endotracheal tube in the right mainstem bronchus. However, a subsequent exam has been performed and it has been pulled back. Left lower lobe airspace disease versus atelectasis.
--- NOTE | 2016-11-02 09:24 | XRay Report ---
AP CHEST :11/01/16 18:56 CLINICAL: Repositioning of endotracheal tube. COMPARISON:Same day 18:34 FINDINGS: Endotracheal tube has been pulled back and is in satisfactory position. The chest is otherwise unchanged. No pneumothorax. IMPRESSION: Satisfactory position of the endotracheal tube.Left lower lobe airspace disease versus atelectasis.
== END 2016-11-01 22:45 | disposition short-term general hospital (02) ==
LOC: ED 17:30 → UNDOADMIN 18:40 → CC1 18:40 → ED 22:45
DX: I63.219 Cerebral infarction due to unspecified occlusion or stenosis of unspecified vertebral artery (principal); J96.01 Acute respiratory failure with hypoxia; G93.40 Encephalopathy, unspecified; N17.9 Acute kidney failure, unspecified; T78.2XXA Anaphylactic shock, unspecified, initial encounter; E87.2 Acidosis
CPT/HCPCS: 31500; 36415; 51702; 70450; 70496; 70498; 71010; 80053; 80307; 81001; 82140; 82550; 82553; 82803; 82805; 84484; 85007; 85025; 85610; 85670; 85730; 86850; 86900; 86901; 87040; 87070; 87205; 93005; 93010; 96374; 96375; 96376; 99291; G0480; J2997; J3010; J7050; Q9967; 80320; 94002; J2250